=== PATIENT | male | born 1995 | race Two or more races ===

== ENCOUNTER 2020-07-28 09:02 | Day surgery (SDC) | payer BC ==
[2020-07-28] VITALS (11 sets, daily range): BP systolic 112–142; BP diastolic 64–76
[~2020-07-28] VITALS: Ht 175.3 cm; Wt 64.9 kg
[~2020-07-28 09:02] MED LIST: GABAPENTIN300 MG ORAL; MOTEGRITY2 MG PO; NEFAZODONE HCL100 MG ORAL; PROPRANOLOL HCL20 MG ORAL; PROZAC40 MG ORAL; WELLBUTRIN SR200 MG ORAL; XANAX0.5 MG ORAL; ceFAZolin sod 1 GM in NS 55 ML IVPB ONE
[2020-07-28] MEDS ORDERED: Betadine 10% Oint 30gm TOPIC ONE (10:24)
[2020-07-28] MEDS ORDERED: Cocaine HCl 4% 4ml vial TOPIC ONE (10:24)
[2020-07-28] MEDS ORDERED: Lidocaine 1% 10mg/ml/Epi 0.005mg/ml 30ml vial INJ ONE (10:25)
[2020-07-28] MEDS ORDERED: Oxymetazoline 0.05% Na Spray 30ml NASAL ONE (10:25)
--- NOTE | 2020-07-28 10:59 | Anethesia Preoperative Eval ---
Anesthesia Pre-op PMH/ROS General Date of Evaluation: Jul 28, 2020 Anesthesiologist: Otis ASA Score: ASA 2 Mallampati Score Class I : Soft palate, uvula, fauces, pillars visible Class II: Soft palate, uvula, fauces visible Class III: Soft palate, base of uvula visible Class IV: Only hard plate visible Mallampati Classification: Class I Surgeon: Sudhakar Diagnosis: deviated septum Surgical Procedure: septoplasty turbs Anesthesia History: none Family History: no anesthesia problems Allergies: Coded Allergies: No Known Allergies (Unverified , 07/28/20) Medications: see eMAR Patient NPO?: Yes NPO Date: Jul 28, 2020 NPO Time: 00:00 Past Medical History Cardiovascular: Denies: HTN, CAD, TN, valve dz, arrhythmia, other Pulmonary: Denies: asthma, COPD, MIKEL, other Gastrointestinal/Genitourinary: Reports: other - IBS; Denies: GERD, CRI, ESRD Neurologic/Psychiatric: Reports: depression/anxiety; Denies: dementia, CVA, TIA, other Endocrine: Denies: DM, hypothyroidism, steroids, other HEENT: Reports: other - deviated septum; Denies: cataract (L), cataract (R), glaucoma, MINTO (L), MINTO (R) Hematology/Immune: Denies: anemia, DVT, bleeding disorder, other Musculoskeletal/Integumentary: Denies: OA, RA, DJD, DDD, edema, other PSxH Narrative: T&A, lap appy, ear sx Anesthesia Pre-op Phys. Exam Physician Exam Last Vital Signs Date Time Temp Pulse Resp B/P (MAP) Pulse Ox O2 Delivery O2 Flow Rate FiO2 07/28/20 09:54 97.1 59 18 137/64 99 Room Air Constitutional: NAD Cardiovascular: RRR Respiratory: CTA Airway Exam Mallampati Score: Class I MO: full ROM: full Teeth: intact Anesthesia Pre-op A/P Labs see chart Risk Assessment & Plan Assessment: ASA II Plan: GA-TIVA Status Change Before Surgery: No Pre-Antibiotics Drug: Ancef 1g Given Within 1 Hr of Incision: Yes Luiza Berg MD Jul 28, 2020 10:59
[2020-07-28] MEDS ORDERED: LR 1000ml ONE (11:00)
[2020-07-28] MEDS ORDERED: Sterile Water Irrig 1000ml IRRIG ONE (11:00)
[2020-07-28] MEDS ORDERED: NS Irrig 1000ml ONE (11:00)
[2020-07-28] MEDS ORDERED: Rocuronium Bromide 50mg/5ml Inj IV ONE (11:14)
[2020-07-28] MEDS ORDERED: fentaNYL 100 mcg/2 mL IV ONE (11:19)
[2020-07-28] MEDS ORDERED: Midazolam 2mg/2ml Inj ONE ×2 (11:19→12:54)
[2020-07-28] MEDS ORDERED: Lidocaine 1% MPF 10mg/ml 5ml ONE ×2 (11:19→12:52)
--- NOTE | 2020-07-28 11:23 | Pre-Procedure Note/Attestation ---
Pre-Procedure Note/Attestation Complete Prior to Procedure Planned Procedure: not applicable Procedure Narrative: nasal obstruction unresponsive to medication Indications for Procedure Pre-Operative Diagnosis: septal deviation, bilateral hypertrophied inferior turbinates Attestation I attest that I discussed the nature of the procedure; its benefits; risks and complications; and alternatives (and the risks and benefits of such alternatives), prior to the procedure, with the patient (or the patient's legal business office representative). I attest that, if there was a reasonable possibility of needing a blood transfusion, the patient (or the patient's legal business office representative) was given the [facility] standardized written summary, pursuant to the [employer] [place] Blood Safety Act ([place] Health and Safety Code # 1645, as amended). I attest that I re-evaluated the patient just prior to the surgery and that there has been no change in the patient's H&P, except as documented below: Hal De La Fuente MD Jul 28, 2020 11:23
[2020-07-28] MEDS ORDERED: fentaNYL 100 mcg/2 mL IV PRN (12:00)
[2020-07-28] MEDS ORDERED: LORazepam Inj 2mg/ml 1ml IV PRN (12:00)
[2020-07-28] MEDS ORDERED: LR 1000ml 1,000 ML IVLG SCH (12:00)
[2020-07-28] MEDS ORDERED: DiphenhydrAMINE 50mg/ml Inj IVP PRN (12:00)
[2020-07-28] MEDS ORDERED: Hydromorphone 0.5mg/0.5ml inj IVP PRN (12:00)
[2020-07-28] MEDS ORDERED: Metoclopramide 10mg/2ml Inj IVP PRN (12:00)
[2020-07-28] MEDS ORDERED: Midazolam 2mg/2ml Inj IVP PRN (12:00)
[2020-07-28] MEDS ORDERED: Bacitracin Oint 15gm Tube TOPIC ONE (13:21)
--- NOTE | 2020-07-28 13:38 | Brief Operative Note ---
Immediate Post Operative Note Operative Note Pre-op Diagnosis: septal deviation, bilateral hypertrophied inferior turbinates Procedure: septoplasty, bilateral inferior turbinectomies with intramural coagulation Post-op Diagnosis: same as pre-op Surgeon: Hal De La Fuente M.d. Anesthesiologist: Otis Hall Anesthesia: general Specimen: yes - septum Complications: none Condition: stable Fluids: ringers lactate Estimated Blood Loss: minimal Drains: none Packing: [email or web address] Implant(s) used?: No Hal De La Fuente MD Jul 28, 2020 13:38
--- NOTE | 2020-07-28 13:49 | Immediate Post-Op Evaluation ---
Immediate Post-Op Evalulation Immediate Post-Op Evalulation Procedure: septoplasty turbs Date of Evaluation: Jul 28, 2020 Time of Evaluation: 13:51 IV Fluids: 1L Blood Products: 0 Estimated Blood Loss: min Urinary Output: 0 Blood Pressure Systolic: 122 Blood Pressure Diastolic: 83 Pulse Rate: 66 Respiratory Rate: 16 O2 Sat by Pulse Oximetry: 97 Temperature (Fahrenheit): 97 Pain Score (1-10): 0 Nausea: No Vomiting: No Complications 0 Patient Status: awake, reacts, patent, none Hydration Status: adequate Drug: Ancef 1g Given Within 1 Hr of Incision: Yes Luiza Berg MD Jul 28, 2020 13:49
--- NOTE | 2020-07-28 13:50 | 48 Hour Post Anesthesia Eval ---
Post Anesthesia Evaluation Procedure: septoplasty turbs Date of Evaluation: Jul 28, 2020 Airway: patent Nausea: No Vomiting: No Pain Intensity: 0 Hydration Status: adequate Cardiopulmonary Status: at baseline Mental Status/LOC: patient returned to baseline Post-Anesthesia Complications: 0 Follow-up care needed: ready to discharge Luiza Berg MD Jul 28, 2020 13:50
--- NOTE | 2020-07-28 23:14 | Operative Note - Dictated ---
DATE OF OPERATION: 07/28/2020 SURGEON: Hal De La Fuente MD ANESTHESIOLOGIST: Luiza Berg MD PREOPERATIVE DIAGNOSES: 1. Septal deviation. 2. Bilateral hypertrophied inferior turbinates. POSTOPERATIVE DIAGNOSES: 1. Septal deviation. 2. Bilateral hypertrophied inferior turbinates. ANESTHESIA: General. INDICATIONS FOR SURGERY: Patient is a 25-year-old male, who complains of left greater than right nasal airway obstruction, unresponsive to medication. FINDINGS AT SURGERY: Revealed the left septum was severely convex in the left nasal cavity and overriding a large left maxillary crest spur. There was also a large maxillary crest spur obstructing the right nasal airway and this combined with the patient's bilateral hypertrophied inferior turbinates created a left greater than right nasal airway obstruction. PROCEDURE IN DETAIL: The patient was brought to the operating room while premedicated and having received preoperative antibiotics. He was then placed in supine position on the operating room table. A time-out was performed. After patient underwent satisfactory endotracheal intubation, he was given IV sedation. The nasal cavity was sprayed with 0.25% Sony-Synephrine. Sterile Q-tips saturated with Betadine solution were used to sterilize the intranasal cavity. Approximately 22 mL of 1% Xylocaine with 1:100,000 epinephrine was used to inject the nasal and septal frameworks. Less than 200 mg of cocaine was used on intranasal packing. The patient then prepped and draped in usual sterile fashion. After suitable period of time had elapsed for vasoconstriction and analgesia, the packing was removed. A left inferior septal incision was made encountering significant scar tissue. A left mucoperichondrial mucoperiosteal flap was eventually elevated. An incision was made between the cartilage and bony septum and a right mucoperiosteal flap was elevated. That portion of overriding obstructing perpendicular plate of the ethmoid and vomer bone were incised in strips from any attachments and removed from the field of operation. A similar procedure was performed on the cartilaginous septum. A mallet and chisel was then used to remove not only the left but also the right obstructing maxillary crest spurs. Re-examination now revealed the septum to be in a more midline physiologic position for breathing. Bipolar intramural coagulation of both inferior turbinates was then performed. An incision was made in the undersurface of both inferior turbinates and the inferior turbinates outfractured. Small bones were then removed from the pocket. Re-examination revealed the patient to have a good bilateral nasal airways. All blood was suctioned from the nose and nasopharynx. 4-0 plain was used to close the septal incision as well as to splint the septum. Telfa coated with Betadine ointment was secured in place with a suture of 3-0 silk and the procedure was terminated. Patient tolerated the procedure well and left the operating room in satisfactory condition. ESTIMATED BLOOD LOSS: 30 mL. COUNTS: Sponge and needle counts were correct. Hal De La Fuente M.D. DR: HAIM JOB#: [id number] CC: SHELLEY
== END 2020-07-28 12:45 | disposition home or self-care (01) ==
LOC: SUR 09:02
DX: J34.2 Deviated nasal septum (principal); J34.3 Hypertrophy of nasal turbinates; F32.9 Major depressive disorder, single episode, unspecified; F41.9 Anxiety disorder, unspecified; Z90.89 Acquired absence of other organs
CPT/HCPCS: 82962; 94003; 94150; J2250; J2405